=== PATIENT | female | born 2005 | race Two or more races ===

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

== ENCOUNTER 2024-05-29 02:45 | Emergency (ER) | payer OTHER ==
[~2024-05-29] VITALS: Ht 165.1 cm; Wt 81.8 kg
[2024-05-29 02:50] VITALS: TEMP 98.6
[2024-05-29 04:15] LABS: BASOPHILS % (AUTO) 0.5 % (0.0-2.0); EOSINOPHILS % (AUTO) 0.6 % (1.0-6.0); HEMATOCRIT 40.7 % (36-46); LYMPHOCYTES # (AUTO) 2.2 K/uL (1.0-4.8); LYMPHOCYTES % (AUTO) 14.7 % (22.0-44.0); MEAN CORPUSCULAR HEMOGLOBIN 31.3 pg (26.0-34.0); MEAN CORPUSCULAR HGB CONC 34.5 G/dL (31.0-37.0); MEAN CORPUSCULAR VOLUME 91 fL (80-100); MONOCYTES # (AUTO) 0.8 K/uL (0.1-1.0); MONOCYTES % (AUTO) 5.5 % (2.0-9.0); NEUTROPHILS # (AUTO) 11.8 K/uL (1.8-7.7); NEUTROPHILS % (AUTO) 78.7 % (40.0-70.0); PLATELET COUNT (AUTO) 250 K/uL (150-450); RED BLOOD CELL COUNT(AUTO) 4.48 MIL/uL (4.00-5.20); RED CELL DISTRIBUTION WIDTH 12.9 % (11.5-14.5)
[2024-05-29 04:20] LABS: APPEARANCE,URINE HAZY (CLEAR); BILIRUBIN,URINE NEGATIVE (NEGATIVE); COLOR,URINE YELLOW (YELLOW); GLUCOSE, URINE (UA) NEGATIVE (NEGATIVE); KETONES,URINE TRACE mg/dL (NEGATIVE); LEUKOCYTE ESTERASE ,URINE LARGE (NEGATIVE); NITRATE,URINE NEGATIVE (NEGATIVE); OCCULT BLOOD,URINE SMALL (NEGATIVE); PROTEIN,URINE 30-70 mg/dL (NEGATIVE); SPECIFIC GRAVITIY, URINE 1.035 (1.003-1.030); UROBILINOGEN,URINE <=1.0 mg/dL (<=1.0)
[2024-05-29 04:22] LABS: ANION GAP 12 mmol/L (8-16); CALCIUM, TOTAL 9.4 mg/dL (8.8-10.5); CARBON DIOXIDE 25 mmol/L (22-29); CHLORIDE 103 mmol/L (98-107); GLOMERULAR FILTR. RATE CALC > 60 mL/min (>60); GLUCOSE,RANDOM 102 mg/dL (70-110); POTASSIUM 3.8 mmol/L (3.5-5.1); SODIUM SERUM 140 mmol/L (136-145); UREA NITROGEN, BLOOD 10 mg/dL (7-18)
[2024-05-29 04:27] LABS: ALBUMIN 3.4 g/dL (3.4-5.0); BILIRUBIN,DIRECT 0.1 mg/dL (0.00-0.20); BILIRUBIN,TOTAL 0.3 mg/dL (0.1-1.0); TOTAL PROTEIN, SERUM 7.7 g/dL (6.4-8.2)
[2024-05-29 04:32] LABS: HCG,QUANTITATIVE < 1 mIU/mL (0-6); LIPASE 31 U/L (16-77)
[2024-05-29 04:35] LABS: BACTERIA,URINE Moderate /HPF (None Seen); RBC,URINE 0-2 /HPF (0-2); SQUAMOUS EPITHELIAL CELL,UR Moderate /LPF (None Seen)
[2024-05-29] MEDS: ONDANSETRON HCL 4 MG/2 ML VIAL IVP ONE (05:05)
[2024-05-29] MEDS: FAMOTIDINE 20 MG/2 ML VIAL IVP ONE (06:16)
[2024-05-29] MEDS: MAG HYDROX/ALUMINUM HYD/SIMETH ES 30 ML SUSPENSION UDCUP PO ONE (06:22)
[2024-05-29] MEDS ORDERED: FAMO20 PO (06:27)
[2024-05-29] MEDS ORDERED: ONDA-104 PO (06:27)
[2024-05-29] MEDS ORDERED: SODIUM CHLORIDE 0.9% 500 ML IV ONE (06:51)
[2024-05-29] MEDS: SODIUM CHLORIDE 0.9% 500 ML IV ONE ×2 (07:13→07:20)
[2024-05-29] MEDS: CefTRIAXone 1 GM/DEXTROSE 50 ML IV ONE (07:19)
[2024-05-29] MEDS: METOCLOPRAMIDE HCL 5 MG/ML 2 ML VIAL IVP ONE (07:20)
[2024-05-29 09:00] VITALS: BP 100/60; PULSE 66; RESP 16; O2SAT 98
[2024-05-29] MEDS ORDERED: CEPH-558 PO (09:02)
== END 2024-05-29 09:18 | disposition home or self-care (01) ==
LOC: EMS 02:45
DX: K30 Functional dyspepsia (principal); R19.7 Diarrhea, unspecified; R11.2 Nausea with vomiting, unspecified; K21.9 Gastro-esophageal reflux disease without esophagitis
CPT/HCPCS: 99285; 96365; 96375; 76705; 80048; 80076; 81001; 83690; 84702; 85025; 87040; 87086; 36415; J0696; J3490; J2765; J2405; J7040